=== PATIENT | male | born 2000 | race Caucasian/White ===

== ENCOUNTER 2018-08-15 10:29 | Day surgery (SDC) | payer OTHER ==
[~2018-08-15 10:29] MED LIST: PROPOFOL INJ 200 MG/20 ML VIAL IV ONE
--- NOTE | 2018-08-15 13:00 | Operative Report ---
Operative Report DATE OF SURGERY: 08/15/18 Operative Report: The risks benefits and alternatives of the procedure explained to the patient in detail and informed consent is obtained.A GIF Olympus video scope was inserted into the patient's mouth and hypopharynx, the esophagus is identified intubated and insufflated, the scope was then advanced through the esophagus stomach and duodenum, retroflexion maneuver is done, the esophagus stomach and first and second portions of the duodenum examined. PREOPERATIVE DIAGNOSIS: Dysphagia POSTOPERATIVE DIAGNOSIS: Esophageal rings and furrows suggestive of eosinophilic esophagitis status post biopsy for confirmation. Gastritis status post biopsy without Helicobacter pylori OPERATION: EGD with biopsy SURGEON: CYNTHIA LOCO ANESTHESIA: LMAC TISSUE REMOVED OR ALTERED: As noted above. COMPLICATIONS: None. ESTIMATED BLOOD LOSS: None. INTRAOPERATIVE FINDINGS: As noted above. PROCEDURE: Patient tolerated the procedure well. No immediate postprocedure complications are noted. Patient is discharged in good condition. Discharge date 08/15/2018 Discharge diet: Regular. Discharge activity: Regular. 2 to 3-week follow-up to discuss findings. Patient is instructed to call the office or proceed to the emergency room should there be any further proximal questions. When on the pathology prior to treatment
[2018-08-15 13:02] VITALS: BP 109/69
== END 2018-08-15 12:42 | disposition home or self-care (01) ==
LOC: END 10:29
PROVIDERS: ATTEND Internal Medicine Gastroenterology
DX: K29.50 Unspecified chronic gastritis without bleeding (principal); J45.909 Unspecified asthma, uncomplicated; F17.210 Nicotine dependence, cigarettes, uncomplicated; Z13.89 Encounter for screening for other disorder; K22.2 Esophageal obstruction
CPT/HCPCS: 43239; 88342 ×2; 88305 ×2; J2704; 731